=== PATIENT | female | born 1985 | race Caucasian/White ===

== ENCOUNTER 2017-03-14 22:07 | Emergency (ER) | payer OTHER ==
[~2017-03-14] VITALS: Ht 167.6 cm; Wt 146.5 kg
[~2017-03-14 22:07] MED LIST: URSO300C3 PO
[2017-03-14 22:11] VITALS: Ht 167.6 cm; Wt 146.5 kg
[2017-03-14] MEDS ORDERED: ACETAMINOPHEN 325 MG TAB PO STA (23:06)
[2017-03-14 23:42] LABS: ADD SCAN DIFF NO
[2017-03-14 23:47] LABS: BASOPHILS % 0.3 % (0.0-2.0); EOSINOPHILS # 0.1 10^3/ul (0.0-0.5); EOSINOPHILS % 0.6 % (0.0-7.0); HEMATOCRIT 41.8 % (37.0-47.0); HEMOGLOBIN 13.4 g/dl (12.0-16.0); LYMPHOCYTES # 2.9 10^3/ul (0.8-2.9); LYMPHOCYTES % 29.6 % (15.0-51.0); MEAN CORPUSCULAR HEMOGLOBIN 28.7 pg (29.0-33.0); MEAN CORPUSCULAR HGB CONC 32.1 g/dl (32.0-37.0); MEAN CORPUSCULAR VOLUME 89.5 fl (82.0-101.0); MONOCYTE # 0.7 10^3/ul (0.3-0.9); MONOCYTES % 7.3 % (0.0-11.0); NEUTROPHIL # 6.1 10^3/ul (1.6-7.5); NEUTROPHILS % 61.9 % (39.0-77.0); PLATELET COUNT 267 10^3/UL (140-415); RED BLOOD COUNT 4.67 10^6/ul (4.20-5.40); RED CELL DISTRIBUTION WIDTH 13.2 % (11.5-14.5); WHITE BLOOD COUNT 9.9 10^3/ul (4.8-10.8)
[2017-03-15 00:02] LABS: ADD UMIC YES; URINE BILIRUBIN (Dip) NEGATIVE (NEGATIVE); URINE BLOOD (Dip) 2+ (NEGATIVE); URINE COLOR LT. YELLOW (YELLOW); URINE GLUCOSE (Dip) NEGATIVE (NEGATIVE); URINE KETONES (Dip) NEGATIVE (NEGATIVE); URINE LEUKOCYTE ESTERASE (Dip) NEGATIVE (NEGATIVE); URINE NITRITE (Dip) NEGATIVE (NEGATIVE); URINE TOTAL PROTEIN (Dip) NEGATIVE (NEGATIVE); URINE UROBILINOGEN (Dip) 0.2 E.U./dL (0.1-1.0)
[2017-03-15 00:30] LABS: BACTERIA,URINE MODERATE; SQUAMOUS EPITHELIAL CELL,UR MODERATE
[2017-03-15 01:37] VITALS: BP 128/71; PULSE 88; RESP 20; TEMP 98.5
--- NOTE | 2017-03-15 02:16 | ERD ---
ER Documentation Chief Complaint Date/Time DATE: 03/15/17 TIME: 02:11 Chief Complaint 6 weeks , vag bleeding today HPI This patient is a 31-year-old female who is Ab0, last menstrual cycle January 31, 2017 presenting to the emergency department for vaginal bleeding which began today. Additionally she has had mild suprapubic bilateral cramping which is improving. She is also had nausea. She denies any fevers, chills, or other symptoms currently. ROS All systems reviewed and are negative except as per history of present illness. Medications Home Meds Reported Medications Ursodiol* (Ursodiol*) 300 Mg Capsule, 300 MG PO BID 02/27/12 Allergies Allergies: Coded Allergies: No Known Drug Allergies (Verified Allergy, Mild, 02/27/12) PMhx/Soc History of Surgery: Yes () Anesthesia Reaction: No Hx Neurological Disorder: No Hx Respiratory Disorders: No Hx Cardiac Disorders: No Hx Psychiatric Problems: No Hx Miscellaneous Medical Probl: No Hx Alcohol Use: No Hx Substance Use: No Hx Tobacco Use: No Smoking Status: Never smoker Physical Exam Vitals Vital Signs Date Time Temp Pulse Resp B/P Pulse Ox O2 Delivery O2 Flow Rate FiO2 03/15/17 01:37 98.5 88 20 128/71 100 03/14/17 22:11 98.5 94 20 131/78 100 Physical Exam Const: Morbidly obese, well-appearing female in no acute distress. Head: Atraumatic Eyes: Normal Conjunctiva ENT: Normal External Ears, Nose and Mouth. Neck: Full range of motion..~ No meningismus. Resp: Clear to auscultation bilaterally Cardio: Regular rate and rhythm, no murmurs Abd: Soft, non tender, non distended. Normal bowel sounds : There is mild suprapubic tenderness palpation bilaterally, worse on the right side. Skin: No petechiae or rashes Back: No midline or flank tenderness Ext: No cyanosis, or edema Neur: Awake and alert Psych: Normal Mood and Affect Result Diagram: 03/14/17 2326 Results 24 hrs Laboratory Tests Test 03/14/17 23:26 03/14/17 23:33 White Blood Count 9.910^3/ul Red Blood Count 4.6710^6/ul Hemoglobin 13.4g/dl Hematocrit 41.8% Mean Corpuscular Volume 89.5fl Mean Corpuscular Hemoglobin 28.7pg Mean Corpuscular Hemoglobin Concent 32.1g/dl Red Cell Distribution Width 13.2% Platelet Count 92973^3/UL Mean Platelet Volume 11.0fl Neutrophils % 61.9% Lymphocytes % 29.6% Monocytes % 7.3% Eosinophils % 0.6% Basophils % 0.3% Nucleated Red Blood Cells % 0.0/100WBC Neutrophils # 6.110^3/ul Lymphocytes # 2.910^3/ul Monocytes # 0.710^3/ul Eosinophils # 0.110^3/ul Basophils # 0.010^3/ul Nucleated Red Blood Cells # 0.010^3/ul Beta HCG, Quantitative 18771.0mIU/ml Urine Color LT. YELLOW Urine Clarity CLEAR Urine pH 6.0 Urine Specific [place] 1.025 Urine Ketones NEGATIVE Urine Nitrite NEGATIVE Urine Bilirubin NEGATIVE Urine Urobilinogen 0.2 E.U./dL Urine Leukocyte Esterase NEGATIVE Urine Microscopic RBC 2-5/HPF Urine Microscopic WBC 2-5/HPF Urine Squamous Epithelial Cells MODERATE Urine Bacteria MODERATE Urine Hemoglobin 2+ Urine Glucose NEGATIVE% Urine Total Protein NEGATIVE Current Medications Medications (Trade) Dose Ordered Sig/Alysha Route PRN Reason Start Time Stop Time Status Last Admin Dose Admin Acetaminophen (Tylenol Tab) 650 mg ONCE STAT PO 03/14/17 23:06 03/14/17 23:08 DC 03/14/17 23:39 PROCEDURE: US OB. CLINICAL INDICATION: Vaginal bleeding. Clinical estimate gestational age is 6 weeks 0 days with estimated date of delivery 11/07/2017 TECHNIQUE: Transabdominal and transvaginal views of the pelvis are available for review. COMPARISON: No prior studies are available for comparison. FINDINGS: The uterus is retroverted. [place]-rump length: 0.47 cm heart rate: 125 beats per minute Ultrasound estimated gestational age: 6 weeks 1 day Estimated date of delivery: 11/06/2017 There may be a 7 mm subchorionic bleed. Neither ovary seen. No adnexal mass or free intrapelvic fluid is seen. IMPRESSION: Single live intrauterine with an estimated gestational age of 6 weeks 1 day based on ultrasound measurements. Possible 7 mm subchorionic bleed versus a small amount of fluid in the endometrial cavity. RPTAT: RENZO Signed By: Kleber Noble M.D 03/15/2017 12:45:53 AM Procedures/[facility] EMERGENCY DEPARTMENT COURSE / MEDICAL DECISION MAKING: This is a 31-year-old female who comes to the emergency room secondary to complaints of vaginal bleeding. The patient was given Tylenol and Zofran in the department. On re-evaluation, the patient was feeling improved. Lab results reviewed and showed no significant acute abnormalities. Beta hCG is consistent with term of . Urinalysis is negative for signs of urinary tract infection, hematuria, or proteinuria. Radiology: Single live intrauterine with an estimated gestational age of 6 weeks 1 day based on ultrasound measurements. Possible 7 mm subchorionic bleed versus a small amount of fluid in the endometrial cavity. The primary diagnosis is vaginal bleeding and patient less than 20 weeks gestation. I have low suspicion for acute abdomen, ectopic , ovarian torsion, septicemia, or other emergent conditions at this time. Discharge: I have discussed the lab results and diagnostic findings with the patient and answered any questions or concerns. Close follow-up with the OB/ NEUROLOGICAL SURGEON physician advised. The patient may return in 48 hours if symptoms continue or worsen for a recheck. She may return sooner if required. The patient was advised to followup with their PMD in 1-2 days and to return to the Emergency Department if there are any new or worsening symptoms. The patient understood and agreed with the diagnosis, treatment and plan. The patient is stable for discharge at this time. Departure Diagnosis: Primary Impression: Vaginal bleeding in patient at less than 20 weeks ges... Condition: Fair Patient Instructions: Bleeding During Early Referrals: COMM[facility]ITY CLINICS YOU HAVE RECEIVED A MEDICAL SCREENING EXAM AND THE RESULTS INDICATE THAT YOU DO NOT HAVE A CONDITION THAT REQUIRES URGENT TREATMENT IN THE EMERGENCY DEPARTMENT. FURTHER EVALUATION AND TREATMENT OF YOUR CONDITION CAN WAIT UNTIL YOU ARE SEEN IN YOUR DOCTORS OFFICE WITHIN THE NEXT 1-2 DAYS. IT IS YOUR RESPONSIBILITY TO MAKE AN APPOINTMENT FOR FOLOW-UP CARE. IF YOU HAVE A PRIMARY DOCTOR --you should call your primary doctor and schedule an appointment IF YOU DO NOT HAVE A PRIMARY DOCTOR YOU CAN CALL OUR PHYSICIAN REFERRAL HOTLINE AT IF YOU CAN NOT AFFORD TO SEE A PHYSICIAN YOU CAN CHOSE FROM THE FOLLOWING FORMERLY [facility] [address] [facility]. [facility] [address] [facility] [address] [facility]. [facility] [address] [facility]. [facility] [address] [facility]. [facility]. [address] Additional Instructions: Follow up with your PCP within the next 1-3 days for a repeat evaluation and a possible referral to a specialist, if required. Return the the emergency department immediately if symptoms worsen or change. If you have any questions regarding medications, ask your pharmacist or us before you leave. If any adverse reactions, occur while taking your medications, discontinue the treatment and return to the emergency department immediately. If any new or worsening symptoms, uncontrolled fevers, or other unexplained symptoms occur, return to the emergency department immediately. Take your medications as directed, and complete the entire course of treatment. MONIKA WILDER PA-C Mar 15, 2017 02:16
== END 2017-03-15 01:39 | disposition home or self-care (01) ==
LOC: FTE 22:07
DX: O20.9 Hemorrhage in early pregnancy, unspecified (principal); Z3A.01 Less than 8 weeks gestation of pregnancy
CPT/HCPCS: 36415; 76801; 76817; 81001; 84702; 85025; 86900; 86901; Z7502; Z7610

== ENCOUNTER 2017-07-28 19:09 | Outpatient (CLI) | payer OTHER ==
[~2017-07-28] VITALS: Ht 177.8 cm; Wt 142.3 kg
[2017-07-28 19:26] VITALS: Ht 177.8 cm; Wt 142.3 kg
[2017-07-28] MEDS ORDERED: ONDANSETRON 4 MG INJ ONE (19:48)
[2017-07-28] MEDS ORDERED: KETOROLAC 30 MG INJ ONE (19:48)
[2017-07-28] MEDS ORDERED: METOCLOPRAMIDE 10 MG INJ ONE (19:48)
[2017-07-28] MEDS ORDERED: OXYTOCIN 30 UNITS/LR 0 ML IV ONE (19:48)
[2017-07-28] MEDS ORDERED: morphine SULFATE/PF (10 MG/10 ML) INJ ONE (19:48)
[2017-07-28 19:59] LABS: ADD UMIC YES; UR ASCORBIC ACID NEGATIVE (NEGATIVE); UR BACTERIA FEW /HPF (NONE SEEN); UR BILIRUBIN (Dip) NEGATIVE (NEGATIVE); UR BLOOD (Dip) NEGATIVE (NEGATIVE); UR CLARITY CLOUDY (CLEAR); UR COLOR YELLOW (YELLOW); UR GLUCOSE (Dip) NEGATIVE (NEGATIVE); UR KETONES (Dip) NEGATIVE (NEGATIVE); UR LEUKOCYTE ESTERASE (Dip) 3+ Leu/ul (NEGATIVE); UR MUCUS FEW /HPF (NONE SEEN); UR NITRITE (Dip) NEGATIVE (NEGATIVE); UR RBC 1 /HPF (0-5); UR SPECIFIC GRAVITY (Dip) 1.028 (1.003-1.030); UR SQUAMOUS EPITHELIAL CELL MODERATE /HPF (FEW); UR TOTAL PROTEIN (Dip) 1+ mg/dl (NEGATIVE); UR UROBILINOGEN (Dip) 1+ mg/dL (NEGATIVE)
[2017-07-28] MEDS ORDERED: EPHEDrine SULFATE 50 MG/5 ML SYG ONE (20:14)
--- NOTE | 2017-07-28 21:19 | TRIAGE ---
OB Triage Datetime Report Generated by CPN: 07/28/2017 21:18 Datetime: 07/28/2017 21:14 Stage of : OB Triage Datetime: 07/28/2017 19:40 Labor Evaluation Frequency: NONE Monitor Mode: External Duration (sec)2399: NONE Pattern: Normal: <= 5 Contractions in 10 Minutes Contraction Comments: PT. DENIES FEELING UC'S OR ABD TIGHTNESS Heart Rate FHR Baseline Rate: 145 Monitor Mode: External US FHR Baseline Changes: No Baseline Change Variability: Moderate 6-25 bpm Datetime: 07/28/2017 19:30 EGA: 25.4 Datetime: 07/28/2017 19:15 Stage of : OB Triage Assessment Type: Triage Maternal Assessment Level of Consciousness: Fully Conscious Headache: Denies Blurred Vision: No Respiratory Effort: Unlabored; Regular Rhythm; Equal Expansion Nausea/Vomiting: Denies RUQ Epigastric Pain: Denies Facial Edema: None Fall Risk Assessment History of Falling: (0) No Secondary Diagnosis: (0) No Ambulatory Aid: (0) Bedrest/Nurse Assist IV Therapy: (0) No Gait: (0) Normal/Bedrest/Immobile Mental Status: (0) Oriented to Own Ability Fall Score: 0 Fall Risk Score Definition: No Risk: No action required Datetime: 07/28/2017 19:14 Monitor Mode: Palpation Resting Tone [place]: Relaxed Contraction Comments: ABD SOFT/NON TENDER. PT. HAS LARGE ABD MASS WITH BMI OF 45 Datetime: 07/28/2017 19:00 Time of Arrival: 07/28/2017 19:00 Arrived By: Ambulatory Arrived From: Home Chief Complaint: VAG PRESSURE X1 DAY JAW NUMBNESS AND DIZZINESS X3DAYS Movement: Present Contractions: Denies/Absent Rupture of Membranes: Denies Vaginal Bleeding: None Vaginal Discharge: Present Recent Sexual Intercouse: Denies Abdominal Trauma: Not Applicable Patient Complaints: Other Time Provider Notified: 07/28/2017 19:30 Provider Notified: KAIA Initial Plan: EFM, CALL OB
--- NOTE | 2017-07-28 21:31 | PN ---
Triage Information Date/Time Reason for visit: Weeks of Gestation 25w 4d /Para Objective Heart Rate Comments doptones present Contractions: None Results/Medications Results 24 hrs Laboratory Tests Test 07/28/17 19:20 Urine Color YELLOW Urine Clarity [place] A Urine pH 5.0 Urine Specific [place] 1.028 Urine Ketones NEGATIVE Urine Nitrite NEGATIVE Urine Bilirubin NEGATIVE Urine Urobilinogen 1+ H Urine Leukocyte Esterase 3+ H Urine Microscopic RBC 1 Urine Microscopic WBC 5 Urine Squamous Epithelial Cells MODERATE Urine Bacteria FEW A Urine Mucus FEW A Urine Hemoglobin NEGATIVE Urine Glucose NEGATIVE Urine Total Protein 1+ H Imaging Results CL 4.4cm Disposition: Discharge Assessment/Plan 32 y/o at 25w 4d with vaginal pressure, no e/o ptl. -rx for antibiotics for presumed UTI -discharge to ER for further evaluation of jaw pain/dizziness SAYRA MARTI Jul 28, 2017 21:31
--- NOTE | 2017-07-28 21:59 | RADRPT ---
PROCEDURE: Limited OB ultrasound CLINICAL INDICATION: Vaginal pressure TECHNIQUE: Limited sonographic evaluation of the gravid uterus was performed to assess the cervica l length COMPARISON: 03/14/2017. FINDINGS: Single live intrauterine with cardiac heart rate of 154 beats per minute is identifi ed. Fetus is in a cephalic presentation. The placenta is posterior. Cervix measures 4.47 cm in leonora gt and closed. IMPRESSION: Single live intrauterine with a cervical length of 4.47 cm and closed. RPTAT: HMVK .Sundar Gonzalez MD, Date Time Electronically viewed and signed by .Sundar Gonzalez MD, MD on 07/28/2017 21:59 .K/
== END 2017-07-28 21:14 | disposition home or self-care (01) ==
LOC: OBT 19:09 → L-D 19:12 → OBT 21:14
PROVIDERS: ATTEND Obstetrics & Gynecology
DX: O26.892 Other specified pregnancy related conditions, second trimester (principal); Z3A.25 25 weeks gestation of pregnancy; R10.2 Pelvic and perineal pain
CPT/HCPCS: 76817; 81001; Z7500; G0463; J1885; J2274; J2405; J2590; J2765

== ENCOUNTER 2017-08-08 08:31 | Emergency (ER) | payer OTHER ==
[~2017-08-08] VITALS: Ht 180.3 cm; Wt 144.0 kg
[2017-08-08 08:33] VITALS: Ht 180.3 cm; Wt 144.0 kg
[2017-08-08] MEDS ORDERED: DIPHENHYDRAMINE 50 MG INJ IV STA (09:00)
[2017-08-08] MEDS ORDERED: METOCLOPRAMIDE 10 MG INJ IV STA (09:00)
--- NOTE | 2017-08-08 09:52 | ERD ---
ER Documentation Chief Complaint Chief Complaint r.side face and hand numbness x 1 day 26 weeks HPI This is a pleasant 32 yo female at 26 weeks presenting to the ER complaining of right facial numbness that started last night around 10 PM. She also complains of tingling in her right hand at the tips of all of her fingers but does not complain of any numbness in the arm or the rest of the hand. She denies any focal weakness or numbness in any other location in her body. She has not noticed any difficulty speaking or slurred speech. She complains of intermittent right-sided headaches that radiate from her right frontal region down to her right lower face. She does endorse a history of migraine, however she is not currently taking medications for this. No fever, chills, nausea, vomiting, vision disturbance, difficulty walking. ROS All systems reviewed and are negative except as per history of present illness. Medications Home Meds No Active Prescriptions or Reported Meds Allergies Allergies: Coded Allergies: No Known Drug Allergies (Verified Allergy, Mild, 02/27/12) PMhx/Soc History of Surgery: Yes () Anesthesia Reaction: No Hx Neurological Disorder: Yes (Migraine VALENTINE.) Hx Respiratory Disorders: No Hx Cardiac Disorders: No Hx Psychiatric Problems: No Hx Miscellaneous Medical Probl: No Hx Alcohol Use: No Hx Substance Use: No Hx Tobacco Use: No Smoking Status: Never smoker FmHx Family History: No diabetes Physical Exam Vitals Vital Signs Date Time Temp Pulse Resp B/P Pulse Ox O2 Delivery O2 Flow Rate FiO2 08/08/17 10:26 98.1 84 18 109/72 98 Room Air 08/08/17 09:57 98.2 82 16 140/74 98 Room Air 08/08/17 08:33 98.2 94 18 139/93 98 Physical Exam Const: Well-appearing, no apparent distress, nontoxic Head: Atraumatic Eyes: Normal Conjunctiva, PERRLA, EOMI, no nystagmus ENT: Normal External Ears, Nose and Mouth. Neck: Full range of motion..~ No meningismus. Resp: Clear to auscultation bilaterally Cardio: Regular rate and rhythm, no murmurs Abd: Soft, non tender, non distended. Normal bowel sounds Skin: No petechiae or rashes Back: No midline or flank tenderness Ext: No cyanosis, or edema Neur: Awake and alert, oriented 3, cranial nerves intact, normal speech, strength and sensations intact in all 4 extremities. Sensory exam of the face reveals hyperesthesia to pinprick on the right side of her face in the trigeminal nerve distribution, more markedly in the forehead distribution. Psych: Normal Mood and Affect Results 24 hrs Current Medications Medications (Trade) Dose Ordered Sig/Alysha Route PRN Reason Start Time Stop Time Status Last Admin Dose Admin Metoclopramide HCl (Reglan) 10 mg ONCE STAT IV 08/08/17 09:00 08/08/17 09:01 DC 08/08/17 09:11 Diphenhydramine HCl (Benadryl) 25 mg ONCE STAT IV 08/08/17 09:00 08/08/17 09:01 DC 08/08/17 09:11 Procedures/MDM The patient is presenting with subjective complaints of numbness in her right hand fingertips and the right side of her face. However on neurologic exam, she had hyperesthesia of her right face to painful stimuli. The rest of her neurologic exam is normal. Given her history of migraines, I think this is more likely a cause of her symptoms rather than intracranial hemorrhage, giant cell arteritis, hypertensive emergency, or stroke. I do not suspect encephalitis or meningitis. Initially when she arrived, her diastolic blood pressure was noted to be greater than 90, which is abnormal in her state. However repeat blood pressure showed her diastolic had improved to be in the 70s. I have a low suspicion for preeclampsia at this time. IV was placed and the patient's symptoms are treated with Reglan and Benadryl for presumable migraine as the cause of her symptoms. Upon reevaluation, the patient states her symptoms have resolved and she feels much better. She would like to go home at this time. I believe the patient is stable for discharge. Follow-up with BODY DESIGN CHECKER was recommended as scheduled. Return precautions were given. Patient discharged in a stable condition. Departure Diagnosis: Primary Impression: Facial paresthesia Condition: Stable MONTY MORA MD Aug 08, 2017 09:52
[2017-08-08 10:26] VITALS: BP 109/72; PULSE 84; RESP 18; TEMP 98.1
== END 2017-08-08 10:29 | disposition home or self-care (01) ==
LOC: E/R 08:31
DX: R20.2 Paresthesia of skin (principal); R40.2252 Coma scale, best verbal response, oriented, at arrival to emergency department; R40.2142 Coma scale, eyes open, spontaneous, at arrival to emergency department; R40.2362 Coma scale, best motor response, obeys commands, at arrival to emergency department
CPT/HCPCS: 96374; 96375; J1200; J2765; Z7502

== ENCOUNTER 2017-10-23 15:00 | Inpatient (IN) | END 2017-10-27 14:40 | disposition home or self-care (01) | DRG 766 ==